=== PATIENT | female | born 1945 | race Caucasian/White ===

== ENCOUNTER 2017-08-19 17:48 | Inpatient (IN) ==
--- NOTE | 2017-08-19 18:28 | Emergency Department Note ---
Disposition Clinical Impression: Urticaria Pulmonary embolus Qualifiers: Pulmonary embolism type: other Chronicity: acute Acute cor pulmonale presence: without acute cor pulmonale Qualified Code(s): I26.99 - Other pulmonary embolism without acute cor pulmonale Disposition: Admitted As Inpatient Condition: Good Referrals: Kamran Matias MD [Primary Care Provider] - Forms: ED Satisfaction Letter Time of Disposition: 19:06 General Adult HPI - General Chief complaint: ED Recheck/Abnormal Lab/Rx Stated complaint: + PE Time Seen by Provider: 08/19/17 18:12 Source: patient Mode of arrival: ambulatory Limitations: no limitations Nursing Notes Reviewed: Yes Vital Signs Reviewed: Yes - History of Present Illness HPI Narrative: Mrs. Randall is a 72-year-old woman with a history of neurogenic bladder, UTI, allergic reaction to antibiotic who presents to the ED following results of the CTA of the chest which demonstrated a possible pulmonary embolus in the left upper lobe. Patient says that she was treated for a UTI with some antibiotic and on Saturday had an allergic reaction to it. At that time her PCP started her on prednisone due to an urticarial rash that are broken out all over her body, however when he called to check up on her today she admitted that she had a heaviness in her chest and a feeling of mild difficulty breathing. She denies any chest pain, shortness of breath in general, cough. 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 She otherwise has no acute symptoms. She denies chest pain, headache, loss of consciousness, hemoptysis, nausea or vomiting. She denies any travel history, active cancers that she is being treated for, unilateral leg swelling or tenderness. Pain Scale: 0 - Related Data Home Medications Medication Instructions Recorded Confirmed Aspirin Enteric Coated [Aspirin EC] 81 mg PO DAILY 08/19/17 08/19/17 Cyanocobalamin (Vitamin B-12) 1,000 mcg PO BID 08/19/17 08/19/17 [Vitamin B12] Triamcinolone Acet 0.1% CRM 1 appl TP QID PRN 08/19/17 08/19/17 [Kenalog] predniSONE [PredniSONE] See Taper PO DAILY 08/19/17 08/19/17 Allergies Allergy/AdvReac Type Severity Reaction Status Date / Time sulfamethoxazole Allergy Swelling Verified 08/12/17 16:43 [From Bactrim] of Lip/Tongue/Throat trimethoprim [From Bactrim] Allergy Swelling Verified 08/12/17 16:43 of Lip/Tongue/Throat nitrofurantoin AdvReac Itching Verified 08/12/17 16:43 [From Macrobid] Constitutional: Denies: fever, chills, weakness Eyes: Denies: vision change ENT ED: Denies: dysphagia Cardiovascular: Reports: dyspnea on exertion. Denies: chest pain, orthopnea Respiratory: Reports: cough. Denies: dyspnea, wheezes, hemoptysis Gastrointestinal: Denies: abdominal pain, nausea, vomiting Genitourinary: Reports: other (She does have neurogenic bladder) Musculoskeletal: Reports: back pain (Admit some mild back pain that occurred yesterday and resolved spontaneously) Integumentary: Denies: rash Neurological: Denies: headache, weakness, numbness, paresthesias Psychiatric: Denies: anxiety, depression Endocrine: Denies: fatigue Hematological/Lymphatic: Denies: easy bleeding Allergic/Immunologic: Denies: facial swelling Past Medical History - Past Medical History Medical history: Reports: no medical history Surgical history: Reports: hysterectomy Psychiatric history: Reports: no psych history - Social History Smoking Status: Former smoker Smokeless Tobacco Status: No Alcohol use: Reports: none Drug use: Reports: none Physical Exam Gen.: Vitals noted. No acute distress. AAOx3 HEENT: PERRL/EOMI, oropharynx clear, Normocephalic, atraumatic Neck: Supple. No adenopathy. Cardiac: RRR, no murmur, +S1/S2 Pulmonary: CTA bilaterally, no wheezes, rales or rhonchi, equal chest expansion Abdomen: soft, nontender, BS noted, no guarding Back: Nontender throughout. MSK: ROM intact, no joint swelling noted Extremities: no BLE edema, nontender calf, no cyanosis or clubbing Skin: Diffuse urticarial rash that is present on all 4 extremities and trunk with excoriations present Neuro: A&Ox3, moves all extremities, no focal deficits Psych: Appropriate mood and behavior - General Limitations: no limitations General appearance: alert, in no apparent distress Course Vital Signs Temperature 98.2 F 08/19/17 17:48 Pulse Rate 62 08/19/17 17:48 Respiratory Rate 18 08/19/17 17:48 Blood Pressure 137/84 08/19/17 17:48 O2 Sat by Pulse Oximetry 99 08/19/17 17:48 Temperature 98.2 F 08/19/17 17:48 Pulse Rate 62 08/19/17 17:48 Respiratory Rate 18 08/19/17 17:48 Blood Pressure 137/84 08/19/17 17:48 O2 Sat by Pulse Oximetry 99 08/19/17 17:48 Oxygen Delivery Oxygen Delivery Room Air Medical Decision Making - MDM Narrative Medical decision making narrative: I reviewed the patient's labs and imaging, as well as her outpatient progress notes. The patient did experience a UTI followed by a allergic reaction to the medication used to treat it. She complained to her PCP that she was having difficulty initiating a breath, so he ordered a d-dimer which was positive, and lead to a CTA chest which then did demonstrate a possible pulmonary embolus in the left upper lobe. The patient is hemodynamically stable, she is normotensive and oxygenating well on room air. I did get new labs from her and spoke with the hospitalist about admission for pulmonary embolism. The hospitalist requested that we initiate therapy with Lovenox if her kidney function was reasonable. The patient does not seem to have any PALOMO, initiate Lovenox therapy. The patient is not having any acute pain or concerns. She does understand the current treatment plan and agrees to be admitted hospital for treatment. - Medical Records Medical records reviewed: Yes I reviewed the patient's medical records. - Lab Data Lab results reviewed: Yes I reviewed the patient's lab results. Result diagrams: 08/19/17 18:42 08/19/17 18:42 Lab Results 08/19/17 08/19/17 08/19/17 Range/Units 18:42 18:42 18:42 WBC 7.8 (4.3-11.1) K/mcL RBC 4.69 (3.82-4.97) M/mcL Hgb 14.2 (11.5-15.4) g/dL Hct 42.5 (35.3-44.9) % MCV 90.6 (83.0-100.0) fL MCH 30.3 (28.0-33.3) pg MCHC 33.4 (31.6-35.5) g/dL RDW 12.7 (11.5-14.5) % Plt Count 173 (140-400) K/mcL MPV 9.3 L (9.4-12.4) fL Immature Gran % 0.5 (0-4) % Seg Neutrophils % 68.9 % Lymphocytes % 25.7 % Monocytes % 4.8 % Eosinophils % 0.0 % Basophils % 0.1 % Neutrophils # 5.3 (1.6-8.9) K/mcL Lymphocytes # 2.0 (0.6-4.6) K/mcL Monocytes # 0.4 (0.0-1.3) K/mcL Eosinophils # 0.0 (0.0-0.6) K/mcL Basophils # 0.0 (0.0-0.2) K/mcL PT 11.0 (9.4-12.1) Seconds INR 1.0 Sodium 137 (136-145) mEq/L Potassium 4.2 (3.5-5.1) mEq/L Chloride 107 (98-107) mEq/L Carbon Dioxide 23 (23-29) mEq/L BUN 32 H (8-23) mg/dL Creatinine 0.94 (0.60-1.20) mg/dL Est GFR ( Amer) > 60 (> 60) Est GFR (Non-Af Amer) 59 L (> 60) BUN/Creatinine Ratio 34 H (6-26) Glucose 114 H (70-105) mg/dL Calculated Osmolality 292 (280-300) Lactic Acid (0.5-2.2) mmol/L Calcium 9.8 (8.6-10.3) mg/dL Troponin I (< 0.04) ng/mL B-Natriuretic Peptide (Less than 100) pg/mL 08/19/17 08/19/17 08/19/17 Range/Units 18:42 18:42 18:58 WBC (4.3-11.1) K/mcL RBC (3.82-4.97) M/mcL Hgb (11.5-15.4) g/dL Hct (35.3-44.9) % MCV (83.0-100.0) fL MCH (28.0-33.3) pg MCHC (31.6-35.5) g/dL RDW (11.5-14.5) % Plt Count (140-400) K/mcL MPV (9.4-12.4) fL Immature Gran % (0-4) % Seg Neutrophils % % Lymphocytes % % Monocytes % % Eosinophils % % Basophils % % Neutrophils # (1.6-8.9) K/mcL Lymphocytes # (0.6-4.6) K/mcL Monocytes # (0.0-1.3) K/mcL Eosinophils # (0.0-0.6) K/mcL Basophils # (0.0-0.2) K/mcL PT (9.4-12.1) Seconds INR Sodium (136-145) mEq/L Potassium (3.5-5.1) mEq/L Chloride (98-107) mEq/L Carbon Dioxide (23-29) mEq/L BUN (8-23) mg/dL Creatinine (0.60-1.20) mg/dL Est GFR ( Amer) (> 60) Est GFR (Non-Af Amer) (> 60) BUN/Creatinine Ratio (6-26) Glucose (70-105) mg/dL Calculated Osmolality (280-300) Lactic Acid 0.9 (0.5-2.2) mmol/L Calcium (8.6-10.3) mg/dL Troponin I < 0.03 (< 0.04) ng/mL B-Natriuretic Peptide 19 (Less than 100) pg/mL - Radiology Data Radiology results reviewed: Yes I reviewed the patient's radiology results. - EKG Data EKG #1 EKG attestation: Yes I reviewed and interpreted this EKG. EKG results narrative: EKG demonstrates sinus rhythm with a rate of 56, ND interval 183, QRS duration 89, QTC 416 with no evidence of acute ischemia. Critical Care Time Critical Care Time: Yes Total Critical Care Time: 35 Attestation: Critical care time 35 minutes managing patient's PE. Attestation Statement - Attestation Attestation: Patient was seen with resident physician. I reviewed the history, physical, assessment and plan, and agree with the findings. I also personally evaluated this patient and had [id number] time with this patient. 72-year-old female presents to the emergency department with chief complaint of pulmonary embolism. Patient was treated for UTI last week. She developed an allergic reaction. PCP started her on steroids to help control the allergic reaction and encouraged her to call him today. When she did they discussed the fact that she has been having some very brief episodes with exertion where she gets a little chest pressure and service shortness of breath or swelling sensation in her throat. This prompted some lab tests including a d-dimer which was positive. That prompted a CTA of the chest which demonstrates a small PE. She was then sent to the emergency department for additional evaluation and treatment. On exam vital signs are stable. She is asymptomatic. ENT is unremarkable. Heart and lungs are both normal. Abdomen is soft and nontender. Extremities unremarkable with no swelling. Neurologically intact. Skin she has mild urticarial rash various areas around the body. ED course we ordered a battery of lab testing including renal function. Additionally we contacted the hospitalist service. They recommended Lovenox of her renal function could tolerate it. The hospital service agreed to accept the patient for admission. She remained hemodynamically stable while in the emergency department. I agree with the resident physician assessment and plan. Critical care time 35 minutes.
[2017-08-19 18:48] LABS: Basophils % 0.1 %; Hematocrit 42.5 % (35.3-44.9); Hemoglobin 14.2 g/dL (11.5-15.4); Immature Granulocytes % 0.5 % (0-4); Lymphocytes % 25.7 %; Mean Corpuscular HGB Conc 33.4 g/dL (31.6-35.5); Mean Corpuscular Hemoglobin 30.3 pg (28.0-33.3); Mean Corpuscular Volume 90.6 fL (83.0-100.0); Mean Platelet Volume 9.3 fL (9.4-12.4); Monocytes # 0.4 K/mcL (0.0-1.3); Monocytes % 4.8 %; Neutrophils # 5.3 K/mcL (1.6-8.9); Platelet Count 173 K/mcL (140-400); Red Blood Count 4.69 M/mcL (3.82-4.97); Red Cell Distribution Width 12.7 % (11.5-14.5); Segmented Neutrophils % 68.9 %
[2017-08-19] MEDS ORDERED: *HR* Enoxaparin 100 MG/ML SYRINGE SQ STA (18:48)
[2017-08-19 19:03] LABS: BUN/Creatinine Ratio 34 (6-26); Blood Urea Nitrogen 32 mg/dL (8-23); Calcium 9.8 mg/dL (8.6-10.3); Carbon Dioxide 23 mEq/L (23-29); Chloride 107 mEq/L (98-107); Glucose 114 mg/dL (70-105); Osmolality,Calculated 292 (280-300); Potassium 4.2 mEq/L (3.5-5.1); Sodium 137 mEq/L (136-145); eGFR For African Americans > 60 (> 60); eGFR For Non-African Americans 59 (> 60)
[2017-08-19] MEDS ORDERED: Acetaminophen 325 MG TABLET PO PRN (21:34)
[2017-08-19] MEDS ORDERED: Naloxone 0.4 MG/ML INJ IVP PRN (21:34)
[2017-08-19] MEDS ORDERED: Ondansetron 4 MG/2 ML VIAL IVP PRN (21:34)
[2017-08-19] MEDS ORDERED: *HR* HYDROcodone/Acet 5/325 mg TABLET PO PRN (21:34)
[2017-08-19] MEDS ORDERED: Triamcinolone Acet 0.1% CRM 15 GM TUBE TP PRN (21:43)
--- NOTE | 2017-08-19 22:00 | Internal Med History&Physical ---
<William Acosta - Last Filed: 08/19/17 22:25> Date of Encounter: 08/19/17 Time of Encounter: 19:00 Assessment and Plan (1) Pulmonary embolus Current visit: Yes Status: Acute Acute PE identified by CTA today. CTA shows possible PE in left upper lobe. Pt. reports previous PE several years ago. Pt. denies anti-coagulation. Aspirin therapy. Lovenox 90 mg Q12 (1 mg/kg). Echocardiogram ordered. Repeat EKG ordered. Monitor pt. for signs of bleeding. Pt. will need to be anti-coagulated post-discharge. Pt. discussed w/Dr. Watkins who is in agreement w/plan of care. Pt. is at high risk for further morbidity and impairment of cardiac perfusion based on current PE, hx of PE, and risk factors of previous tobacco abuse. Observation. Qualifiers: Pulmonary embolism type: other Chronicity: acute Acute cor pulmonale presence: without acute cor pulmonale Qualified Code(s): I26.99 - Other pulmonary embolism without acute cor pulmonale (2) Urticaria Current visit: Yes Status: Acute Acute rxn to Macrobid prescribed for UTI. Pt. placed on prednisone by PCP. Will discontinue prednisone and administer 25 mg Benadryl BID PRN for urticaria. Continue patient's triamcinolone cream. 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 Pt. reports she had temporary paralysis which resolved after surgery but left legs weakened. Falls/ safety precautions. PT/OT consults ordered to assess pt. for ambulation strength , stability, and safety. 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 Pt. was being treated for UTI prior to [place] w/ Macrobid by PCP and had allergic rxn to abx. U/A w/reflex and culture ordered to assess if UTI has resolved. Pt. has allergies to Bactrim, Macrob, and sulfa drugs. Will need abx coverage if culture results +. Provide pads for incontinence and monitor pt. to prevent skin breakdown. (5) DVT prophylaxis Current visit: Yes Status: Acute Pt. receiving 1 mg/kg of Lovenox (90 mg) Q12 for current PE identified by CTA today. Monitor pt. for signs of bleeding. Internal Medicine - H&P: HPI Chief complaint: Abnormal labs Admitted From: Emergency Dept Plans for Post Hospital Care: Home History of present illness: Ms. 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 Pt. reports she reported SOB to her PCP and was placed on Macrobid prior to [place], completed partial amount of abx, and finished the rest after New Years and developed rash. Placed on prednisone. Reported heaviness in chest to PCP today who sent her to [facility] ED. CTA of the chest today showed possible PE within the left upper lobe patient reports previously having a PE 6 years ago. 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 Past Med Surg Social Fam HX - Past Medical History Source: patient, old records reviewed, obtained from family Medical history: pulmonary embolus, other (Stroke in spine) Psychiatric history: no psych history - Past Surgical History Surgical History: hysterectomy, other (Spine surgery) - Social History Smoking Status: Former smoker Packs per day: 1/2 PPD - Reports quitting 50 years ago Smokeless Tobacco Status: No Alcohol use: none Drug use: none Current living situation: Home, With Family Activity Level: Independent ambulation Recent Out of Country Travel Within the Last 8 Weeks: No Exposure or Possible Exposure to Illness During Travel: No - Family History Mother Race: Family Member Ethnicity: Non- Living Status: Age at : 68 Cause of : Lung cancer Hx Family Cancer: Yes (Lung) Father History Unknown: Yes Race: Family Member Ethnicity: Non- Living Status: Brother Age: 70 Race: Family Member Ethnicity: Non- Living Status: Still Living Hx Family Cancer: Yes (Thyroid cancer) Internal Medicine - H&P: Meds Aspirin Enteric Coated [Aspirin EC] 81 mg PO DAILY 08/19/17 [History] Cyanocobalamin (Vitamin B-12) [Vitamin B12] 1,000 mcg PO BID 08/19/17 [History] Triamcinolone Acet 0.1% CRM [Kenalog] 1 appl TP QID PRN 08/19/17 [History] predniSONE [PredniSONE] See Taper PO DAILY 08/19/17 [History] 3 Allergy/AdvReac Type Severity Reaction Status Date / Time sulfamethoxazole Allergy Swelling Verified 08/12/17 16:43 [From Bactrim] of Lip/Tongue/Throat trimethoprim [From Bactrim] Allergy Swelling Verified 08/12/17 16:43 of Lip/Tongue/Throat nitrofurantoin AdvReac Itching Verified 08/12/17 16:43 [From Macrobid] All Systems PM: A 10-system review of systems was performed and is negative for pertinent findings except as documented above in the HPI. - Constitutional Constitutional: as per HPI, weakness (Bilateral legs), no chills, no fever(s), no night sweats - EENT Eyes: no change in vision, no discharge, no pain, no photophobia Ears: no ear discharge, no ear pain, no tinnitus Nose, mouth and throat: no dysphagia, no nasal discharge, no neck pain, no sore throat - Breasts Breasts: as per HPI - Cardiovascular Cardiovascular ROS IM: other (Chest heaviness), no chest pain, no diaphoresis, no dyspnea, no lightheadedness, no palpitations, no syncope - Respiratory Respiratory: no cough, no dyspnea, no wheezing, no excessive phlegm production - Gastrointestinal Gastrointestinal: no abdominal pain, no diarrhea, no hematemesis, no hematochezia, no melena, no nausea, no vomiting - Genitourinary Genitourinary: no change in urinary stream, no dysuria, no flank pain, no hematuria Menstruation: as per HPI, post hysterectomy - Musculoskeletal Musculoskeletal ROS IM: other (Bilateral leg weakness), no numbness, no tingling - Integumentary Integumentary IM: no rash, no unusual bruising - Neurological Neurological ROS: as per HPI, weakness (Bilateral legs), no confusion, no convulsions, no focal weakness, no numbness, no tingling, no tremor(s) - Psychiatric Psychiatric: as per HPI - Endocrine Endocrine IM: as per HPI - Hematologic/Lymphatic Hematologic/Lymphatic: no easy bruising - Allergic/Immunologic Allergic/Immunologic: as per HPI - Constitutional Vitals: Temp Pulse Resp BP Pulse Ox 97.8 F 52 18 118/73 98 08/19/17 21:32 08/19/17 21:32 08/19/17 21:32 08/19/17 21:32 08/19/17 21:32 General appearance: Present: cooperative, A&O X 3, pleasant, no acute distress, obese, answers questions appropriately - Head Head exam: Present: atraumatic, normocephalic - Eye Eye exam: Present: PERRL, conjuntiva pink, sclera anicteric Pupils: Present: PERRL - ENT ENT exam: Present: normal exam, normal external ear exam - Neck Neck exam general surgery: Present: normal inspection, supple, trachea midline. Absent: lymphadenopathy - Respiratory Respiratory exam: Present: CTAB. Absent: accessory muscle use, rales, rhonchi, wheezes - Cardiovascular Cardiovascular exam: Present: RRR, +S1, +S2. Absent: diastolic murmur, gallop, rubs, systolic murmur - GI/Abdominal GI/Abdominal exam: Present: normal bowel sounds, soft, no peritoneal signs. Absent: distended, tenderness - Rectal Rectal exam: Present: deferred - Additional comments: exam deferred. - Extremities Exam Extremities exam: Present: warm, radial pulses palpable and symmetrical. Absent : calf tenderness, cyanotic, pedal edema - Back Exam Back exam: Present: normal inspection - Neurological Exam Neurological exam: Present: CN II-XII intact, oriented X3, no focal deficits. Absent: pronater drift, facial droop, speech deficit - Psychiatric Psychiatric exam: Present: normal affect, normal mood - Skin Skin exam: Present: dry, intact Internal Med - H&P Results - Labs CBC & Chem 7: 08/19/17 18:42 08/19/17 18:42 - Diagnostic Studies Other Images Additional comments: EXAMINATION: CTA OF THE CHEST 08/19/2017 5:10 pm TECHNIQUE: CTA of the chest was performed after the administration of intravenous contrast. Multiplanar reformatted images are provided for review. MIP images are provided for review. Dose modulation, iterative reconstruction, and/or weight based adjustment of the mA/kV was utilized to reduce the radiation dose to as low as reasonably achievable. COMPARISON: None. HISTORY: ORDERING SYSTEM PROVIDED HISTORY: 100 ml of [id number] FINDINGS: Pulmonary Arteries: Evaluation limited due to contrast bolus timing and respiratory motion artifact. However, there does appear to be a filling defect within a left upper lobe branch of the pulmonary artery on image number 32 of series 4 concerning for PE. Mediastinum: No evidence of mediastinal lymphadenopathy. The heart and pericardium demonstrate no acute abnormality. There is no acute abnormality of the thoracic aorta. There is a mild hiatal hernia. Lungs/pleura: The lungs are without acute process. No focal consolidation or pulmonary edema. No evidence of pleural effusion or pneumothorax. There are scattered subsegmental atelectatic changes of the lungs. Upper Abdomen: Limited images of the upper abdomen are unremarkable. Soft Tissues/Bones: A 17 mm hypodense nodule is present within the right thyroid lobe. Mild degenerative changes of the spine are present. IMPRESSION: Possible PE within the left upper lobe. Incidentally noted thyroid nodule. RECOMMENDATIONS: Managing Incidental Thyroid Nodule Detected at CT or MRI or US 1. Further evaluation by thyroid Ultrasound recommended for these incidental nodules: Patient Age 18 years or less - Any nodule. Patient Age 19-34 years old - Nodule 1 cm in size or greater Patient Age 35 years or more - Nodule 1.5 cm in size or greater 2. Follow up thyroid ultrasound also recommend in these scenarios -Solitary nodule with high risk imaging features (locally invasive nodule or suspicious lymph nodes) -Any nodule in a heterogeneous enlarged thyroid gland 3. NO further imaging is recommended in the following scenarios -No f/u imaging is recommended for ITNs not meeting the above criteria. -No US or f/u recommended for ITNs without high risk features in pts. with limited life expectancy or significant co-morbidities, unless clinically warranted. Note: These recommendations do not apply to pts. w/ increased risk for thyroid cancer or pts. with symptomatic thyroid disease. Recommendations for f/u of Incidental Thyroid Nodules (ITN) found on CT, MR, NM and Extrathyroidal US are based upon the ACR white paper and Vivar 3-tiered system for managing ITNs: J Am Naman Radiol. 2015 Feb;12(2): 143-50 D/ / Abilio Welch MD / Abilio Welch MD Interpreting Provider: Abilio Welch MD NDUM: Case discussed with Dr. Caldwell at 5:30 p.m. on 08/19/2017. D/ / Abilio Welch MD / Abilio Welch MD Interpreting Provider: Abilio Welch MD R #: [id number] CT/CT angio chest IMPRESSION: Possible PE within the left upper lobe. Incidentally noted thyroid nodule. RECOMMENDATIONS: Managing Incidental Thyroid Nodule Detected at CT or MRI or US 1. Further evaluation by thyroid Ultrasound recommended for these incidental nodules: Patient Age 18 years or less - Any nodule. Patient Age 19-34 years old - Nodule 1 cm in size or greater Patient Age 35 years or more - Nodule 1.5 cm in size or greater 2. Follow up thyroid ultrasound also recommend in these scenarios -Solitary nodule with high risk imaging features (locally invasive nodule or suspicious lymph nodes) -Any nodule in a heterogeneous enlarged thyroid gland 3. NO further imaging is recommended in the following scenarios -No f/u imaging is recommended for ITNs not meeting the above criteria. -No US or f/u recommended for ITNs without high risk features in pts. with limited life expectancy or significant co-morbidities, unless clinically warranted. Note: These recommendations do not apply to pts. w/ increased risk for thyroid cancer or pts. with symptomatic thyroid disease. Recommendations for f/u of Incidental Thyroid Nodules (ITN) found on CT, MR, NM and Extrathyroidal US are based upon the ACR white paper and Vivar 3-tiered system for managing ITNs: J Am Naman Radiol. 2015 Fe;12(2): 143-50 D/ / Abilio Welch MD / Abilio Welch MD Interpreting Provider: Abilio Welch MD Chest x-ray Additional comments: EXAMINATION: TWO VIEWS OF THE CHEST 08/19/2017 1:08 pm COMPARISON: 11/06/2009 HISTORY: ORDERING SYSTEM PROVIDED HISTORY: WEAKNESS SOB FINDINGS: Heart size and pulmonary vessels normal. There are very low lung volumes resulting in bibasilar atelectasis. There is no suspicious infiltrate or edema XR/XR chest 2V IMPRESSION: Low lung volumes resulting in bibasilar atelectasis D/ / Erik Flynn MD / Erik Flynn MD Interpreting Provider: Erik Flynn MD <Elieser Watkins - Last Filed: 08/20/17 04:02> Date of Encounter: 08/20/17 Internal Medicine - H&P: HPI History of present illness: Ms. Randall is a 72 year old female All Systems PM: A 10-system review of systems was performed and is negative for pertinent findings except as documented above in the HPI. - Constitutional Vitals: Temp Pulse Resp BP Pulse Ox 98.3 F 57 16 130/69 95 08/20/17 03:17 08/20/17 03:17 08/20/17 03:17 08/20/17 03:17 08/20/17 03:17 Internal Med - H&P Results - Labs CBC & Chem 7: 08/19/17 18:42 08/19/17 18:42 - Attending Attestation I have seen and examined this pt independently. I have discussed with [employer] Mr Acosta regarding the management plan. Agree with the documentation.
[2017-08-20 04:42] LABS: Basophils % 0.1 %; Eosinophils % 0.1 %; Hematocrit 39.8 % (35.3-44.9); Hemoglobin 13.4 g/dL (11.5-15.4); Immature Granulocytes % 0.1 % (0-4); Lymphocytes % 52.9 %; Mean Corpuscular HGB Conc 33.7 g/dL (31.6-35.5); Mean Corpuscular Hemoglobin 30.5 pg (28.0-33.3); Mean Corpuscular Volume 90.7 fL (83.0-100.0); Mean Platelet Volume 10.1 fL (9.4-12.4); Monocytes # 0.6 K/mcL (0.0-1.3); Monocytes % 8.1 %; Neutrophils # 2.9 K/mcL (1.6-8.9); Platelet Count 133 K/mcL (140-400); Red Blood Count 4.39 M/mcL (3.82-4.97); Red Cell Distribution Width 12.8 % (11.5-14.5); Segmented Neutrophils % 38.7 %
[2017-08-20 04:48] LABS: INR 1.1; Prothrombin Time 12.1 Seconds (9.4-12.1)
[2017-08-20 04:51] LABS: Activated Partial Thrombo Time 29.9 Seconds (26.0-36.0)
[2017-08-20 04:53] LABS: Hemoglobin A1C 5.5 %
[2017-08-20 05:09] LABS: Alanine Aminotransferase 60 Units/L (7-52); Albumin 3.4 g/dL (3.5-5.7); Alkaline Phosphatase 49 Units/L (34-104); Aspartate Amino Transferase 33 Units/L (13-39); BUN/Creatinine Ratio 32 (6-26); Bilirubin,Total 0.6 mg/dL (0.3-1.0); Blood Urea Nitrogen 28 mg/dL (8-23); Calcium 9.5 mg/dL (8.6-10.3); Carbon Dioxide 23 mEq/L (23-29); Chloride 110 mEq/L (98-107); Chol/HDL Ratio 4.5 (0-4.9); Cholesterol 149 mg/dL (< 200); Globulin 3.4 g/dL (2.4-3.5); Glucose 113 mg/dL (70-105); HDL Cholesterol 33 mg/dL (40-59); LDL Cholesterol,Calculated 95 mg/dL (0-99); Magnesium 1.9 mg/dL (1.6-2.6); Osmolality,Calculated 292 (280-300); Potassium 3.6 mEq/L (3.5-5.1); Sodium 138 mEq/L (136-145); Total Protein 6.8 g/dL (6.4-8.9); Triglycerides 104 mg/dL (< 150); eGFR For African Americans > 60 (> 60); eGFR For Non-African Americans > 60 (> 60)
[2017-08-20] MEDS: *HR* Enoxaparin 100 MG/ML SYRINGE SQ SCH ×2 (05:42→17:54)
[2017-08-20] MEDS: Cyanocobalamin (B-12) 1,000 MCG TABLET PO SCH ×2 (08:53→21:03)
[2017-08-20] MEDS: Aspirin Enteric Coated 81 MG Tablet PO SCH (08:54)
--- NOTE | 2017-08-20 14:51 | Internal Med Progress Note ---
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 on Xarelto; Echo shows preserved EF, mild LV diastolic dysfunction, mild MR; not requiring supplemental O2 at this time; chest pain-free; Qualifiers: Pulmonary embolism type: other Chronicity: acute Acute cor pulmonale presence: without acute cor pulmonale Qualified Code(s): I26.99 - Other pulmonary embolism without acute cor pulmonale (2) Urticaria Current Visit: Yes Status: Resolved (3) UTI (urinary tract infection) Current Visit: Yes Status: Ruled-out Assessment and plan: patient has had recurrent urine cultures growing E.coli; probably colonization with h/o- urinary incontinence secondary to previous spinal surgery; does have outpatient Urology appointment; will watch off antibiotics for now; Qualifiers: Urinary tract infection type: site unspecified Hematuria presence: without hematuria Qualified Code(s): N39.0 - Urinary tract infection, site not specified (4) Incontinence Current Visit: Yes Status: Chronic Qualifiers: Incontinence type: urinary Urinary Incontinence type: urge incontinence Qualified Code(s): N39.41 - Urge incontinence - Subjective Interval history: Feels better; no chest seg[place]ia, dyspnea, leg pain or swelling; - Constitutional Vitals: Temp Pulse Resp BP Pulse Ox 97.1 F L 49 17 107/60 95 08/20/17 11:21 08/20/17 11:21 08/20/17 11:21 08/20/17 11:21 08/20/17 11:21 General appearance: Present: A&O X 3, pleasant, obese, answers questions appropriately - Respiratory Respiratory exam: Present: CTAB. Absent: accessory muscle use, rales, rhonchi, wheezes - Cardiovascular Cardiovascular exam: Present: RRR, +S1, +S2. Absent: diastolic murmur, gallop, rubs, systolic murmur - GI/Abdominal GI/Abdominal exam: Present: normal bowel sounds, soft, no peritoneal signs. Absent: distended, tenderness - Extremities Exam Extremities exam: Present: full ROM, warm, radial pulses palpable and symmetrical. Absent: calf tenderness, cyanotic, pedal edema Internal Medicine: Result - Labs CBC & Chem 7: 08/22/17 04:05 08/22/17 04:05 Labs: Short CBC 08/20/17 Range/Units 03:58 WBC 7.5 (4.3-11.1) K/mcL Hgb 13.4 (11.5-15.4) g/dL Hct 39.8 (35.3-44.9) % Plt Count 133 L (140-400) K/mcL Neutrophils # 2.9 (1.6-8.9) K/mcL BMP 08/20/17 03:58 Sodium 138 Potassium 3.6 Chloride 110 H Carbon Dioxide 23 BUN 28 H Creatinine 0.88 Glucose 113 H Calcium 9.5 Liver Function 08/20/17 Range/Units 03:58 Total Bilirubin 0.6 (0.3-1.0) mg/dL AST 33 (13-39) Units/L ALT 60 H (7-52) Units/L Alkaline Phosphatase 49 (34-104) Units/L Albumin 3.4 L (3.5-5.7) g/dL - ABG Interpretation ABG results: PT/INR, D-dimer PT 12.1 Seconds (9.4-12.1) 08/20/17 03:58 - Impressions Impressions Echocardiogram 08/20/17 21:39 Impressions: LVEF 60%. Mild left ventricular diastolic dysfunction. Normal right ventricular structure and function. Mild prolapsing of the posterior mitral leaflet. Mild mitral regurgitation. No pulmonary hypertension. Left Ventricular Wall Motion: Rest Echo Findings All wall segments showed normal motion. Findings: Study Quality * Technically adequate exam. ECG Findings * Normal sinus rhythm. Left Ventricle * LVEF 60%. * Normal LV chamber size and function. * Asymmetric basal septal hypertrophy. * Mild left ventricular diastolic dysfunction. Right Ventricle * Normal right ventricular structure and function. Left Atrium * Moderately dilated left atrium. Right Atrium * Normal right atrial size. Aortic Valve * No aortic regurgitation. * Trileaflet aortic valve. * Normal aortic valve structure. * No aortic stenosis. Mitral Valve * No mitral stenosis. * Mild prolapsing of the posterior mitral leaflet. * Mild mitral regurgitation. Tricuspid Valve * Tricuspid valve not well visualized. * No tricuspid regurgitation. * Estimated RA pressure is 3 mmHg. Pulmonic Valve * Pulmonic valve is not well visualized. * No pulmonic stenosis. * No pulmonic regurgitation. Pulmonary Artery * Pulmonary artery not well visualized. Aorta * Normally sized aortic root. Pericardium * There is no pericardial effusion present. Interatrial Septum * No evidence of PFO by color Doppler. IVC * Normal IVC dimensions and inspiratory collapse. Consult Discharge Plan - Plan Instructions: Warfarin (By mouth), Enoxaparin (Injection), Pulmonary Embolism ( DC) Additional Instructions: F/up with PCP in 1-2 weeks F/up with Hematology in 3-4 weeks Referrals: Kamran Matias MD [Primary Care Provider] - 08/28/17 1:00 pm () Prescriptions: Warfarin [Coumadin] 5 mg PO 1800 #10 tablet
--- NOTE | 2017-08-20 20:13 | Electrocardiograph Report ---
[place] [id number] Test Date: 2017-08-19 Pat Name: Keyonna Randall Department: 102 Room: 2A34 Gender: F Application Systems Architect: : [id number] Requested By: Octaviano Isaac Order Number: [id number] Reading MD: Anny Armando Measurements Intervals [place] Rate: 56 P: 40 DE: 183 QRS: -11 QRSD: 89 T: 6 QT: 425 QTc: 416 Interpretive Statements ARTIFACT LIMITS INTERPRETATION Electronically Signed On 08-20-2017 20:12:17 EST by Anny Armando
[2017-08-21 06:09] LABS: Basophils % 0.5 %; Eosinophils % 0.5 %; Hematocrit 39.7 % (35.3-44.9); Hemoglobin 13.4 g/dL (11.5-15.4); Immature Granulocytes % 0.5 % (0-4); Lymphocytes # 2.1 K/mcL (0.6-4.6); Lymphocytes % 47.4 %; Mean Corpuscular HGB Conc 33.8 g/dL (31.6-35.5); Mean Corpuscular Hemoglobin 30.5 pg (28.0-33.3); Mean Corpuscular Volume 90.2 fL (83.0-100.0); Mean Platelet Volume 9.7 fL (9.4-12.4); Monocytes # 0.5 K/mcL (0.0-1.3); Monocytes % 11.7 %; Neutrophils # 1.8 K/mcL (1.6-8.9); Platelet Count 135 K/mcL (140-400); Red Cell Distribution Width 12.8 % (11.5-14.5); Segmented Neutrophils % 39.4 %
[2017-08-21] MEDS: *HR* Enoxaparin 100 MG/ML SYRINGE SQ SCH ×2 (06:17→17:43)
[2017-08-21 06:26] LABS: Alanine Aminotransferase 57 Units/L (7-52); Albumin/Globulin Ratio 0.9 (1.1-2.2); Alkaline Phosphatase 47 Units/L (34-104); Aspartate Amino Transferase 35 Units/L (13-39); BUN/Creatinine Ratio 29 (6-26); Bilirubin,Total 0.3 mg/dL (0.3-1.0); Blood Urea Nitrogen 26 mg/dL (8-23); Calcium 8.9 mg/dL (8.6-10.3); Carbon Dioxide 25 mEq/L (23-29); Chloride 111 mEq/L (98-107); Globulin 3.3 g/dL (2.4-3.5); Glucose 92 mg/dL (70-105); Osmolality,Calculated 292 (280-300); Potassium 3.7 mEq/L (3.5-5.1); Sodium 139 mEq/L (136-145); Total Protein 6.3 g/dL (6.4-8.9); eGFR For African Americans > 60 (> 60); eGFR For Non-African Americans > 60 (> 60)
[2017-08-21] MEDS: Aspirin Enteric Coated 81 MG Tablet PO SCH (08:01)
[2017-08-21] MEDS: Cyanocobalamin (B-12) 1,000 MCG TABLET PO SCH ×2 (08:01→22:16)
[2017-08-21 15:40] LABS: INR 1.1; Prothrombin Time 12.4 Seconds (9.4-12.1)
[2017-08-21] MEDS ORDERED: *HR* Warfarin 5 MG TABLET PO ONE (18:00)
[2017-08-21] MEDS ORDERED: *HR* Warfarin 4 MG TABLET PO ONE (18:00)
[2017-08-21] MEDS ORDERED: Warfarin perPT PO PRN (18:00)
[2017-08-21] MEDS ORDERED: Melatonin 3 MG TABLET PO PRN (23:42)
[2017-08-22 04:52] LABS: Basophils % 0.4 %; Eosinophils % 0.9 %; Hematocrit 39.4 % (35.3-44.9); Hemoglobin 13.2 g/dL (11.5-15.4); Immature Granulocytes % 0.6 % (0-4); Lymphocytes # 2.8 K/mcL (0.6-4.6); Lymphocytes % 60.8 %; Mean Corpuscular HGB Conc 33.5 g/dL (31.6-35.5); Mean Corpuscular Hemoglobin 30.3 pg (28.0-33.3); Mean Corpuscular Volume 90.4 fL (83.0-100.0); Mean Platelet Volume 9.9 fL (9.4-12.4); Monocytes # 0.5 K/mcL (0.0-1.3); Monocytes % 10.5 %; Neutrophils # 1.3 K/mcL (1.6-8.9); Nucleated Red Blood Cells 0.4 /100 WBC (0); Platelet Count 129 K/mcL (140-400); Red Blood Count 4.36 M/mcL (3.82-4.97); Red Cell Distribution Width 12.8 % (11.5-14.5); Segmented Neutrophils % 26.8 %
[2017-08-22 04:53] LABS: INR 1.1; Prothrombin Time 12.3 Seconds (9.4-12.1)
[2017-08-22 05:04] LABS: Alanine Aminotransferase 51 Units/L (7-52); Albumin 2.9 g/dL (3.5-5.7); Albumin/Globulin Ratio 0.9 (1.1-2.2); Alkaline Phosphatase 43 Units/L (34-104); Aspartate Amino Transferase 34 Units/L (13-39); BUN/Creatinine Ratio 26 (6-26); Bilirubin,Total 0.4 mg/dL (0.3-1.0); Blood Urea Nitrogen 23 mg/dL (8-23); Carbon Dioxide 24 mEq/L (23-29); Chloride 111 mEq/L (98-107); Globulin 3.1 g/dL (2.4-3.5); Glucose 94 mg/dL (70-105); Osmolality,Calculated 291 (280-300); Potassium 3.6 mEq/L (3.5-5.1); Sodium 139 mEq/L (136-145); eGFR For African Americans > 60 (> 60); eGFR For Non-African Americans > 60 (> 60)
[2017-08-22] MEDS: *HR* Enoxaparin 100 MG/ML SYRINGE SQ SCH (06:22)
[2017-08-22] MEDS: Aspirin Enteric Coated 81 MG Tablet PO SCH (07:48)
[2017-08-22] MEDS: Cyanocobalamin (B-12) 1,000 MCG TABLET PO SCH (07:48)
[2017-08-22 10:34] VITALS: BP 115/74
--- NOTE | 2017-08-22 12:46 | Discharge Summary ---
Date of Encounter: 08/22/17 Time of Encounter: 12:44 - Discharge Diagnosis (1) UTI (urinary tract infection) Priority: Primary Status: Ruled-out Qualifiers: Urinary tract infection type: site unspecified Hematuria presence: without hematuria Qualified Code(s): N39.0 - Urinary tract infection, site not specified (2) Incontinence Priority: Secondary Status: Chronic Qualifiers: Incontinence type: urinary Urinary Incontinence type: urge incontinence Qualified Code(s): N39.41 - Urge incontinence (3) Pulmonary embolus Priority: Primary Status: Acute Qualifiers: Pulmonary embolism type: other Chronicity: acute Acute cor pulmonale presence: without acute cor pulmonale Qualified Code(s): I26.99 - Other pulmonary embolism without acute cor pulmonale (4) Urticaria Priority: Primary Status: Resolved - Discharge Medications Prescriptions: Warfarin [Coumadin] 5 mg PO 1800 #10 tablet Home Medications: Aspirin Enteric Coated [Aspirin EC] 81 mg PO DAILY 08/19/17 [History] Cyanocobalamin (Vitamin B-12) [Vitamin B12] 1,000 mcg PO BID 08/19/17 [History] Triamcinolone Acet 0.1% CRM [Kenalog] 1 appl TP QID PRN 08/19/17 [History] predniSONE [PredniSONE] See Taper PO DAILY 08/19/17 [History] Enoxaparin [Lovenox] 90 mg SQ Q12HR syringe 08/22/17 [Rx] Warfarin [Coumadin] 5 mg PO 1800 #10 tablet 08/22/17 [Rx] Allergies/Adverse Reactions: 3 Allergy/AdvReac Type Severity Reaction Status Date / Time sulfamethoxazole Allergy Swelling Verified 08/12/17 16:43 [From Bactrim] of Lip/Tongue/Throat trimethoprim [From Bactrim] Allergy Swelling Verified 08/12/17 16:43 of Lip/Tongue/Throat nitrofurantoin AdvReac Itching Verified 08/12/17 16:43 [From Macrobid] Date of admission: 08/20/17 15:41 Primary care physician: Kamran Matias MD Discharging clinician: Char Hernandez Anticipated date of discharge: 08/22/17 - Patient Status Disposition: Home, Self-Care Condition: Good Functional capacity at discharge: independent ambulation Overall status at discharge: patient is progressing back to baseline - Discharge Instructions Instructions: Warfarin (By mouth), Enoxaparin (Injection), Pulmonary Embolism ( DC) Follow Up With: Kamran Matias MD [Primary Care Provider] - 08/28/17 1:00 pm () Additional Instructions: F/up with PCP in 1-2 weeks F/up with Hematology in 3-4 weeks - Diet and Activity Activity: resume usual activities as tolerated Diet: low fat, low cholesterol, low salt diet, other (Coumadin diet) Hospital course: Ms. Randall is a 72 year old female with the above medical problems, admitted with chest tightness and urticarira. Patient had a reaction to nitrofurantoin that she recently received, for suspected UTI she was given steroids and Benadryl with improvement in the symptoms. D-dimer was noted to be elevated, CT angiogram of the chest revealed left upper lobe pulmonary embolism. She was started on anticoagulation with subcutaneous Lovenox. Lui check was done for Xarelto, noted to be expensive for patient. She was subsequently started on Coumadin. Protein C, S, antithrombin III, lupus anticoagulant testing has been ordered, currently pending. She is currently medically stable, chest pain-free, saturating well on room air and is stable for discharge. She is being set up with outpatient hematology and anticoagulation clinic follow-up. Urine culture grew E.coli but patient was not symptomatic and has h/o- urinary incontinence from previous spinal surgery. Advised outpatient Urology f/up to discuss further. - Time Spent with Patient Total time spent providing and/or coordinating discharge services: Greater than 30 minutes (45 min) - Constitutional Vitals: Temp Pulse Resp BP Pulse Ox 98.0 F 74 16 115/74 92 08/22/17 10:33 08/22/17 10:33 08/22/17 10:33 08/22/17 10:33 08/22/17 10:33 General appearance: Present: A&O X 3, pleasant, answers questions appropriately - Respiratory Respiratory exam: Present: CTAB. Absent: accessory muscle use, rales, rhonchi, wheezes
[2017-08-22] MEDS ORDERED: *HR* Warfarin 5 MG TABLET PO ONE (18:00)
--- NOTE | 2017-08-23 19:21 | Internal Med Progress Note ---
Date of Encounter: 08/21/17 Time of Encounter: 14:00 (Late entry progress note) - Assessment and plan (1) Pulmonary embolus Status: Acute Assessment and plan: CTA chest shows small PE; B/L VD of lower extremities showed no DVT; Continue subcutaneous Lovenox, therapeutic dosing; bass for NOACs like Xarelto, checked , not affordable; plan for Lovenox bridging and Coumadin initiation; start 5mg Coumadin; patient explained about Coumadin diet and INR monitoring; Echo shows preserved EF, mild LV diastolic dysfunction, mild MR; not requiring supplemental O2 at this time; chest pain-free; PT/OT evaluation noted, recommend no pT needs; Qualifiers: Pulmonary embolism type: other Chronicity: acute Acute cor pulmonale presence: without acute cor pulmonale Qualified Code(s): I26.99 - Other pulmonary embolism without acute cor pulmonale (2) Urticaria Status: Resolved (3) UTI (urinary tract infection) Status: Ruled-out Qualifiers: Urinary tract infection type: site unspecified Hematuria presence: without hematuria Qualified Code(s): N39.0 - Urinary tract infection, site not specified (4) Incontinence Status: Chronic Qualifiers: Incontinence type: urinary Urinary Incontinence type: urge incontinence Qualified Code(s): N39.41 - Urge incontinence - Subjective Interval history: Denies new complaints; no chest pain, dyspnea, able to ambulate well; no leg pain or swelling; - Constitutional Vitals: Temp Pulse Resp BP Pulse Ox 98.0 F 74 16 115/74 92 08/22/17 10:33 08/22/17 10:33 08/22/17 10:33 08/22/17 10:33 08/22/17 10:33 General appearance: Present: A&O X 3, pleasant, obese, answers questions appropriately - Respiratory Respiratory exam: Present: CTAB. Absent: accessory muscle use, rales, rhonchi, wheezes - Cardiovascular Cardiovascular exam: Present: RRR, +S1, +S2. Absent: diastolic murmur, gallop, rubs, systolic murmur - GI/Abdominal GI/Abdominal exam: Present: normal bowel sounds, soft, no peritoneal signs. Absent: distended, tenderness - Extremities Exam Extremities exam: Present: full ROM, warm, radial pulses palpable and symmetrical. Absent: calf tenderness, cyanotic, pedal edema Internal Medicine: Result - Labs CBC & Chem 7: 08/22/17 04:05 08/22/17 04:05 - ABG Interpretation ABG results: PT/INR, D-dimer PT 12.3 Seconds (9.4-12.1) H 08/22/17 04:05 Consult Discharge Plan - Plan Instructions: Warfarin (By mouth), Enoxaparin (Injection), Pulmonary Embolism ( DC) Additional Instructions: F/up with PCP in 1-2 weeks F/up with Hematology in 3-4 weeks Referrals: Kamran Matias MD [Primary Care Provider] - 08/28/17 1:00 pm () Prescriptions: Warfarin [Coumadin] 5 mg PO 1800 #10 tablet
[2017-08-23 19:34] LABS: APTT (LE Anticoag) 47 sec (32-48); Diluted Russell Viper Venom 35 sec (33-44); PT (LE-Anticoag) 14.5 sec (12.0-15.5)
[2017-08-24 14:43] LABS: Antithrombin III, Activity 100 % (76-128); Protein C, Functional 148 % (83-168); Protein S, Free 68 % (55-123)
== END 2017-08-22 14:06 | disposition home or self-care (01) | DRG 176 ==
LOC: 2ANU 17:48 → EMEROO 17:48 → 2ANU 20:25 → SUATTDRO 20:44
PROVIDERS: ADMIT Hospitalist; ATTEND Internal Medicine